=== PATIENT | male | born 1995 | race Caucasian/White ===

== ENCOUNTER 2021-08-20 20:12 | Emergency (ER) | payer OTHER ==
[~2021-08-20] VITALS: Ht 170.2 cm; Wt 63.5 kg
[2021-08-20 20:37] VITALS: BP 128/84
--- NOTE | 2021-08-20 20:53 | NUR ---
US TECH AT BED SIDE
[2021-08-20 21:22] LABS: BILIRUBIN,URINE NEGATIVE (NEGATIVE); COLOR,URINE YELLOW (YELLOW); LEUKOCYTE ESTERASE ,URINE NEGATIVE (NEGATIVE); NITRITE, URINE NEGATIVE (NEGATIVE); PH,URINE 6.5 (5.0-8.0); PROTEIN,URINE NEGATIVE (NEGATIVE); UGLUCOSE NEGATIVE (NEGATIVE); UROBILINOGEN,URINE 0.2 EU/dL (0.2)
[2021-08-20 21:38] LABS: BACTERIA,URINE None seen /HPF (None Seen); RBC,URINE 0-2 /HPF (0-2); SQUAMOUS EPITHELIAL CELL,UR Rare /HPF (None Seen); WBC,URINE 0-2 /HPF (0-3)
--- NOTE | 2021-08-20 22:00 | NUR ---
Patient discharged to home in stable condition. Written and verbal after care instructions given. Patient verbalizes understanding of instruction.
== END 2021-08-20 22:00 | disposition home or self-care (01) ==
LOC: ER 20:12
DX: N20.0 Calculus of kidney (principal)
CPT/HCPCS: 76870-TC; 81001